=== PATIENT | male | born 1970 | race Asian ===

== ENCOUNTER 2019-07-21 13:20 | Emergency (ER) | payer OTHER ==
[~2019-07-21] VITALS: Ht 182.9 cm; Wt 95.7 kg
[2019-07-21 13:45] VITALS: TEMP 99
[2019-07-21 15:27] LABS: PLATELET COUNT 196 K/uL (142-355)
[2019-07-21 16:01] LABS: POTASSIUM 3.8 mmol/L (3.6-5.2)
[2019-07-21 20:37] VITALS: BP 107/74
== END 2019-07-21 20:39 | disposition home or self-care (01) ==
LOC: ED 13:20
PROVIDERS: Emergency Medicine Emergency Medical Services
DX: J01.90 Acute sinusitis, unspecified (principal); M54.5 Low back pain; J40 Bronchitis, not specified as acute or chronic
CPT/HCPCS: 80053; 81000; 85027; 87040; 87077; 87185; 87186; 87205; 87502; 87651; 96372; 99283; J0696; J1885; J2930

== ENCOUNTER 2020-12-27 12:56 | Outpatient (CLI) | payer OTHER ==
[2020-12-27 13:44] LABS: PLATELET COUNT 158 K/uL (142-355)
[2020-12-27 13:53] LABS: POTASSIUM 3.6 mmol/L (3.6-5.2)
== END 2020-12-27 21:56 | disposition home or self-care (01) ==
LOC: US 12:56
PROVIDERS: ATTEND Nurse Practitioner Family
DX: R60.0 Localized edema (principal); M10.09 Idiopathic gout, multiple sites
CPT/HCPCS: 36415; 80053; 84550; 85027

== ENCOUNTER 2022-10-26 16:44 | Emergency (ER) | payer OTHER ==
[~2022-10-26] VITALS: Ht 180.3 cm; Wt 102.1 kg
[2022-10-26 17:10] VITALS: BP 143/93; TEMP 98.4
== END 2022-10-26 18:37 | disposition home or self-care (01) ==
LOC: ED 16:44
PROC: 0HQDXZZ Repair Right Lower Arm Skin, External Approach (ICD-10-PCS; principal; 2022-10-26)
DX: S51.851A Open bite of right forearm, initial encounter (principal); W54.0XXA Bitten by dog, initial encounter; Y92.89 Other specified places as the place of occurrence of the external cause
CPT/HCPCS: 90715; 96372; 99283; J2001

== ENCOUNTER 2022-11-10 10:06 | Emergency (ER) | payer OTHER ==
[~2022-11-10] VITALS: Ht 180.3 cm; Wt 103.0 kg
[2022-11-10 10:12] VITALS: BP 151/87; TEMP 98.3
== END 2022-11-10 10:25 | disposition home or self-care (01) ==
LOC: ED 10:06
DX: S51.811D Laceration without foreign body of right forearm, subsequent encounter (principal); Z48.02 Encounter for removal of sutures; W54.0XXD Bitten by dog, subsequent encounter; Y92.89 Other specified places as the place of occurrence of the external cause